=== PATIENT | female | born 2000 | race Caucasian/White ===

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

== ENCOUNTER 2020-03-10 16:50 | Emergency (ER) | payer OTHER, MEDICAID ==
[~2020-03-10] VITALS: Ht 157.5 cm; Wt 95.3 kg
[2020-03-10 16:50] VITALS: BP_SYST 121
[2020-03-10] MEDS: MAG-AL HYDROX/SIMETH 30 ML UDC PO ONE (17:43)
[2020-03-10] MEDS: LIDOCAINE VISCOUS 2%, 15 ML UDC MM ONE (17:43)
[2020-03-10] MEDS: DICYCLOMINE HCL 10 MG/5 ML SOLUTION PO ONE (17:43)
[2020-03-10] MEDS: PANTOPRAZOLE SODIUM 40 MG TAB PO ONE (17:44)
[2020-03-10] MEDS: KETOROLAC TROMETHAMINE 60 MG/2 ML VIAL IM ONE (18:06)
[2020-03-10 18:30] LABS: BASOPHILS # (AUTO) 0.1 K/uL (0.0-0.2); BASOPHILS % (AUTO) 0.8 % (0.0-2.0); EOSINOPHILS # (AUTO) 0.2 K/uL (0.0-0.4); EOSINOPHILS % (AUTO) 2.3 % (0.0-4.0); HEMATOCRIT 37.5 % (36-48); HEMOGLOBIN 12.7 g/dL (12.0-16.0); LYMPHOCYTES # (AUTO) 2.5 K/uL (1.0-5.5); LYMPHOCYTES % (AUTO) 26.8 % (20.5-51.5); MEAN CORPUSCULAR HEMOGLOBIN 30 pg (27-31); MEAN CORPUSCULAR HGB CONC 34 % (32-36); MEAN CORPUSCULAR VOLUME 88 fL (79.0-98.0); MONOCYTES # (AUTO) 0.8 K/uL (0.0-1.0); MONOCYTES % (AUTO) 8.1 % (1.7-9.3); NEUTROPHILS # (AUTO) 5.8 K/uL (1.8-7.7); PLATELET COUNT (AUTO) 261 K/uL (130-430); RED BLOOD CELL COUNT(AUTO) 4.27 MIL/uL (4.2-6.2); WHITE BLOOD COUNT (AUTO) 9.4 K/uL (4.5-11.0)
[2020-03-10 18:52] LABS: CALCIUM 8.8 mg/dL (8.4-11.0); CREATININE 0.65 mg/dL (0.55-1.30); POTASSIUM 4.5 mmol/L (3.5-5.1)
[2020-03-10] MEDS: NS 500 ML IV ONE (18:57)
[2020-03-10 18:58] LABS: ALBUMIN 3.7 g/dL (3.4-4.8); TOTAL BILIRUBIN 0.2 mg/dL (0.0-1.0)
[2020-03-10] MEDS: MORPHINE 2 MG/ML INJ. SYRINGE IVP ONE (18:58)
[2020-03-10] MEDS: ONDANSETRON HCL 4 MG/2 ML VIAL IVP ONE (18:59)
[2020-03-10] MEDS: MORPHINE 4 MG/ML INJ. SYRINGE IVP ONE (20:33)
[2020-03-10 21:19] VITALS: BP_SYST 121
== END 2020-03-10 21:20 | disposition home or self-care (01) ==
LOC: SED 16:50
DX: R10.13 Epigastric pain (principal); I10 Essential (primary) hypertension
CPT/HCPCS: 36415; 74177; 76376; 76700; 80053; 81025; 84703; 85025; 96361; 96372; 96374; 96375; 96376; 99285; J1885; J2001; J2270 ×2; J2405; J7040; Q9967

== ENCOUNTER 2021-08-24 22:08 | Emergency (ER) | payer OTHER, BC, MEDICAID ==
[~2021-08-24] VITALS: Ht 157.5 cm; Wt 99.8 kg
[2021-08-24 22:41] VITALS: BP_SYST 96
[2021-08-24 23:29] LABS: BASOPHILS % (AUTO) 0.6 % (0.0-2.0); EOSINOPHILS # (AUTO) 0.1 K/uL (0.0-0.4); EOSINOPHILS % (AUTO) 1.5 % (0.0-4.0); HEMATOCRIT 35.8 % (36-48); HEMOGLOBIN 12.1 g/dL (12.0-16.0); LYMPHOCYTES # (AUTO) 1.3 K/uL (1.0-5.5); LYMPHOCYTES % (AUTO) 20.2 % (20.5-51.5); MEAN CORPUSCULAR HEMOGLOBIN 29 pg (27-31); MEAN CORPUSCULAR HGB CONC 34 % (32-36); MEAN CORPUSCULAR VOLUME 87 fL (79.0-98.0); MONOCYTES # (AUTO) 0.6 K/uL (0.0-1.0); MONOCYTES % (AUTO) 8.7 % (1.7-9.3); NEUTROPHILS # (AUTO) 4.5 K/uL (1.8-7.7); PLATELET COUNT (AUTO) 226 K/uL (130-430); RED BLOOD CELL COUNT(AUTO) 4.11 MIL/uL (4.2-6.2); RED CELL DISTRIBUTION WIDTH 13.2 % (9.0-15.0); WHITE BLOOD COUNT (AUTO) 6.5 K/uL (4.8-10.8)
[2021-08-24 23:43] LABS: ANION GAP 10 (5-15); CHLORIDE 104 mmol/L (98-107); GLUCOSE 88 mg/dL (70-99); POTASSIUM 3.7 mmol/L (3.5-5.1); SODIUM SERUM 137 mmol/L (136-145); UREA NITROGEN, BLOOD 10 mg/dL (8-21)
[2021-08-25 00:12] LABS: ALANINE AMINOTRANSFERASE 22 U/L (12-78); ALBUMIN 3.1 g/dL (3.4-4.8); ASPARTATE AMINOTRANSFERASE 23 U/L (10-37); GFR AFRICAN AMERICAN 198 mL/min (>90); TOTAL BILIRUBIN < 0.1 mg/dL (0.0-1.0)
[2021-08-25 00:13] LABS: HCG,QUANTITATIVE 47685 mIU/ML (0-6)
--- NOTE | 2021-08-25 00:18 | NUR ---
Patient to ER bed H1 to gown for evaluation. Side rails up. Report given to JESSICA CANAS
--- NOTE | 2021-08-25 00:25 | NUR ---
Dr. Cross at bedside with patient.
[2021-08-25] MEDS ORDERED: METOCLOPRAMIDE HCL 10 MG/2 ML VIAL IM ONE (00:30)
[2021-08-25] MEDS ORDERED: DIPHENHYDRAMINE INJ 50 MG/ML VIAL IM ONE (00:30)
[2021-08-25] MEDS ORDERED: MORPHINE 4 MG INJ. 4 MG/ML VIAL IM ONE (00:30)
--- NOTE | 2021-08-25 00:34 | NUR ---
Pt came from home with c/o RUQ pain that radiates toward the back. Patient describes pain as constant and 7/10. Pt states she is 13 weeks , denies vaginal bleeding. Pt states this is her 3rd and 2 living children. A&O x 4, ambulatory, and follows simple commands. Safety precautions in place.
--- NOTE | 2021-08-25 00:55 | NUR ---
Pt to US accompanied by staff.
--- NOTE | 2021-08-25 01:25 | NUR ---
Pt returned from [facility] accompanied by staff.
--- NOTE | 2021-08-25 01:48 | NUR ---
Pt still unable to give urine for sample. Dr. Cross made aware.
--- NOTE | 2021-08-25 02:58 | NUR ---
Pt resting bed. Pt states that she has had some relief from her pain after medicating. Safety precautions in place.
[2021-08-25 03:33] LABS: BILIRUBIN,URINE NEGATIVE (NEGATIVE); BLOOD, URINE NEGATIVE (NEGATIVE); CLARITY/URINE CLEAR (CLEAR); COLOR,URINE YELLOW (YELLOW); GLUCOSE,URINE NEGATIVE (NEGATIVE); KETONES,URINE 3+ (NEGATIVE); LEUKOCYTE ESTERASE ,URINE NEGATIVE (NEGATIVE); NITRITE, URINE NEGATIVE (NEGATIVE); PH,URINE 6.5 (5.0-8.0); PROTEIN URINE NEGATIVE (NEGATIVE)
[2021-08-25 03:44] LABS: BACTERIA,URINE MANY /HPF (None Seen); RBC,URINE 0-3 /HPF (0-3); WBC,URINE 0-3 /HPF (0-3)
[2021-08-25] MEDS ORDERED: NITR-85 PO (04:18)
[2021-08-25 04:35] VITALS: BP_SYST 100
--- NOTE | 2021-08-25 04:35 | NUR ---
Patient given written and verbal discharge instructions and verbalizes understanding. ER Dr. Cross discussed with patient the results and treatment provided. Patient in stable condition. ID arm band removed. Rx of macrobid given. Patient educated on pain management and to follow up with PMD. Pain Scale 3. Opportunity for questions provided and answered. Medication side effect fact sheet provided.
== END 2021-08-25 04:35 | disposition home or self-care (01) ==
LOC: SED 22:08
DX: O26.891 Other specified pregnancy related conditions, first trimester (principal); R10.13 Epigastric pain; R82.71 Bacteriuria; Z3A.13 13 weeks gestation of pregnancy
CPT/HCPCS: 36415; 76705; 76856; 80053; 81000; 83690; 84702; 85025; 87086; 96372; 99284; J1200; J2765

== ENCOUNTER 2023-10-06 15:58 | Emergency (ER) | payer BC, OTHER, MEDICAID ==
[~2023-10-06] VITALS: Ht 157.5 cm; Wt 61.7 kg
[~2023-10-06 15:58] MED LIST: NITR-85 PO
[2023-10-06 16:00] VITALS: BP_SYST 126; PULSE 82; RESP 18; TEMP 97.7; O2SAT 96
[2023-10-06] MEDS: IBUPROFEN 800 MG TABLET PO ONE (16:53)
[2023-10-06] MEDS: BACITRACIN 1 GM OINT TP ONE (16:54)
[2023-10-06] MEDS: HYDROcodone/ACETAMIN 5-325 MG TAB (NORCO/ VICODIN) PO ONE (16:54)
[2023-10-06 16:56] LABS: BASOPHILS % (AUTO) 0.4 % (0.0-2.0); EOSINOPHILS # (AUTO) 0.1 K/uL (0.0-0.4); EOSINOPHILS % (AUTO) 1.5 % (0.0-4.0); HEMATOCRIT 32.2 % (36-48); HEMOGLOBIN 10.8 g/dL (12.0-16.0); LYMPHOCYTES # (AUTO) 1.9 K/uL (1.0-5.5); LYMPHOCYTES % (AUTO) 20.9 % (20.5-51.5); MEAN CORPUSCULAR HEMOGLOBIN 28 pg (27-31); MEAN CORPUSCULAR HGB CONC 34 % (32-36); MEAN CORPUSCULAR VOLUME 83 fL (79.0-98.0); MONOCYTES # (AUTO) 0.6 K/uL (0.0-1.0); MONOCYTES % (AUTO) 6.9 % (1.7-9.3); NEUTROPHILS # (AUTO) 6.3 K/uL (1.8-7.7); NEUTROPHILS % (AUTO) 70.3 % (40.0-70.0); PLATELET COUNT (AUTO) 249 K/uL (130-430); RED CELL DISTRIBUTION WIDTH 15.3 % (9.0-15.0)
[2023-10-06] MEDS ORDERED: HYDR-3917 PO (17:20)
[2023-10-06] MEDS ORDERED: NEOM28.37 TP (17:20)
[2023-10-06 17:22] LABS: CALCIUM 8.8 mg/dL (8.4-11.0); CREATININE 0.5 mg/dL (0.55-1.30); POTASSIUM 4.4 mmol/L (3.5-5.1)
== END 2023-10-06 17:58 | disposition home or self-care (01) ==
LOC: SED 15:58
DX: T24.102A Burn of first degree of unspecified site of left lower limb, except ankle and foot, initial encounter (principal); Z79.899 Other long term (current) drug therapy; Z79.2 Long term (current) use of antibiotics; V29.888A Rider (driver) (passenger) of other motorcycle injured in other specified transport accidents, initial encounter; Y93.89 Activity, other specified; Y92.89 Other specified places as the place of occurrence of the external cause; Y99.8 Other external cause status
CPT/HCPCS: 36415; 80048; 83605; 85025; 99283